=== PATIENT | female | born 1940 | race Caucasian/White ===

== ENCOUNTER 2022-01-26 17:08 | Outpatient (CLI) | payer MEDICARE, BC | END 2022-01-26 17:09 | disposition home or self-care (01) | LOC: BURRAD 17:08 | PROVIDERS: ATTEND Family Medicine | DX: R07.9 Chest pain, unspecified (principal); I51.7 Cardiomegaly; I70.0 Atherosclerosis of aorta; M41.9 Scoliosis, unspecified; R91.8 Other nonspecific abnormal finding of lung field | CPT/HCPCS: 71046 ==